=== PATIENT | female | born 1985 | race Caucasian/White ===

== ENCOUNTER → 2023-07-28 11:59 | Outpatient (REF) | payer BC, SELFPAY | LOC: PNTC 11:59 | PROVIDERS: ATTENDING PHYSICIAN Obstetrics & Gynecology | DX: O26.10 Low weight gain in pregnancy, unspecified trimester (principal) | CPT/HCPCS: 76805 ==

== ENCOUNTER 2023-08-05 07:00 | Inpatient (IN) | payer BC, SELFPAY ==
[2023-08-05 07:40] VITALS: BP 116/73; BMI 19.9
[2023-08-05 07:42] LABS: Hematocrit 31.5 % (37.0-47.0); Hemoglobin 10.4 g/dL (12.0-16.0); Mean Corpuscular Volume 87.7 fL (81.0-99.0); Mean Platelet Volume 13.1 fL (7.4-10.4); Platelet Count 171 10^3/uL (130-400); Red Blood Cell Count 3.59 10^6/uL (4.20-5.40); Red Cell Dist. Width 13.6 % (11.5-14.5); White Blood Cell Count 7.6 10^3/uL (4.8-10.8)
[2023-08-05] MEDS: TYLENOL 1000 MG PO (08:47)
[2023-08-05] MEDS: BICITRA 30 ML PO (08:47)
[2023-08-05] MEDS: ANCEF 10 IV (08:48)
[2023-08-05] MEDS: PITOCIN 30 UNITS/NSS 500 ML IV (10:30)
[2023-08-05] MEDS: HYDROCORTISONE 2.5% CREAM TOPICAL ×2 (13:43→22:37)
[2023-08-05] MEDS: BENADRYL 25 MG IV (14:14)
[2023-08-05] MEDS: TORADOL 15 MG IV ×2 (16:30→22:40)
[2023-08-06 04:00] LABS: Hematocrit 25.2 % (37.0-47.0); Hemoglobin 8.6 g/dL (12.0-16.0); Mean Corp Hgb Conc. 34.1 g/dL (33.0-37.0); Mean Corpuscular Hgb 29.7 pg (27.0-31.0); Mean Corpuscular Volume 86.9 fL (81.0-99.0); Mean Platelet Volume 13.2 fL (7.4-10.4); Platelet Count 172 10^3/uL (130-400); Red Cell Dist. Width 13.4 % (11.5-14.5); White Blood Cell Count 16.2 10^3/uL (4.8-10.8)
[2023-08-06] MEDS: TORADOL 15 MG IV ×2 (04:02→09:54)
[2023-08-06] MEDS: PRENATAL PLUS 1 TABLET PO (08:22)
[2023-08-06] MEDS: FEOSOL 325 MG PO ×2 (08:22→19:59)
[2023-08-06] MEDS: SENOKOT-S 1 TABLET PO (08:22)
[2023-08-06] MEDS: HYDROCORTISONE 2.5% CREAM 1 APPLIC TOPICAL (08:23)
--- NOTE | 2023-08-06 16:28 | W.PN.ANS.POP ---
Anesthesia Post Operative
- Anesthesia Post Op Note
Vital Signs Stable-See Nursing Note: Yes
Airway Patent: Yes
Adequate Pain Control: Yes
Change in Mental Status: No
Current Postoperative Nausea & Vomiting: No
Anesthesia Complications: No
General Anesthetic Recall: No
Unplanned Admission: No
Post Op Hydration Adequate: Yes
[2023-08-06] MEDS: MOTRIN 600 MG PO (17:26)
[2023-08-06] MEDS: TYLENOL 650 MG PO (19:59)
[2023-08-06] MEDS: MYLICON 80 MG PO (19:59)
[2023-08-06] MEDS: HYDROCORTISONE 2.5% CREAM TOPICAL (20:02)
[2023-08-07] MEDS: TYLENOL 650 MG PO ×2 (00:01→06:03)
[2023-08-07] MEDS: MOTRIN 600 MG PO ×2 (06:03)
[2023-08-07] MEDS: MYLICON 80 MG PO ×2 (06:13→08:35)
[2023-08-07] MEDS: SENOKOT-S 1 TABLET PO (08:24)
[2023-08-07] MEDS: FEOSOL 325 MG PO (08:24)
[2023-08-07] MEDS: PRENATAL PLUS 1 TABLET PO (08:24)
[2023-08-07] MEDS: HYDROCORTISONE 2.5% CREAM TOPICAL (08:25)
--- NOTE | 2023-08-07 08:49 | W.DS.TRANS ---
DC Summary - [employer]
-
Discharge Instructions:
Discharge Diagnosis/Procedures section
Instructions:
Stand-Alone Forms:
Changes to Home Medications: No
Discharge Medications:
DC Medications w/original date entered in [employer]
Vitamin 1 tab PO DAILY Supplement 08/05/23
acetaminophen 325 mg tablet 650 mg (2 x 325 mg) PO Q4HPRN PRN mild pain #0 tabs 08/07/23
ferrous sulfate 325 mg (65 mg iron) tablet (FeroSul) 325 mg PO BID #0 tabs 08/07/23
ibuprofen 600 mg tablet 600 mg PO Q6HPRN PRN cramps #45 tabs 08/07/23
sennosides 8.6 mg-docusate sodium 50 mg tablet (Stool Softener-Stimulant Laxative) 1 tab PO DAILYPRN PRN constipation #0 tabs 08/07/23
Home Medication Changes
Pending Results: No
[2023-08-09 14:53] LABS: Syphilis/T. pallidum Ab Reflex Negative (Negative)
== END 2023-08-07 10:36 | disposition home or self-care (01) | DRG 787 ==
LOC: LDRP 07:00
PROVIDERS: ADMITTING PHYSICIAN Obstetrics & Gynecology; ATTENDING PHYSICIAN Obstetrics & Gynecology; FAMILY PHYSICIAN Family Medicine
PROC: 0UBMXZX Excision of Vulva, External Approach, Diagnostic (ICD-10-PCS; 2023-08-05)
PROC: 10D00Z1 Extraction of Products of Conception, Low, Open Approach (ICD-10-PCS; 2023-08-05)
DX: O34.211 Maternal care for low transverse scar from previous cesarean delivery (principal); O98.82 Other maternal infectious and parasitic diseases complicating childbirth; N85.8 Other specified noninflammatory disorders of uterus; O34.13 Maternal care for benign tumor of corpus uteri, third trimester; D25.0 Submucous leiomyoma of uterus; Z3A.39 39 weeks gestation of pregnancy; Z37.0 Single live birth; N90.89 Other specified noninflammatory disorders of vulva and perineum; B95.1 Streptococcus, group B, as the cause of diseases classified elsewhere; D50.0 Iron deficiency anemia secondary to blood loss (chronic); O99.02 Anemia complicating childbirth
CPT/HCPCS: 88305; 36415; 85027; 86780; 86850; 86900; 86901